=== PATIENT | female | born 1990 | race Caucasian/White ===

== ENCOUNTER 2016-12-02 19:29 | Emergency (ER) | payer BC ==
--- NOTE | 2016-12-02 19:49 | ERNOTE ---
Neuro HPI ER Record Date of Service: 12/02/16 Presenting Symptoms: other - Seizure Time Seen by Provider: 12/02/16 19:34 Source: patient, family, RN notes reviewed Exam Limitations: no limitations Immunizations: IMMUNIZATION HX Immunizations Up to Date Yes History of Influenza Vaccine Yes Hx Pneumococcal Vaccination No Allergies/Adverse Reactions: Allergies Allergy/AdvReac Type Severity Reaction Status Date / Time amoxicillin [Amoxicillin] Allergy Intermediate Hives Verified 12/02/16 19:38 iodine Allergy Intermediate Hives Verified 12/02/16 19:38 Home Medications: HOME MEDICATIONS levETIRAcetam [Keppra] 500 mg PO BID 05/25/12 [Last Taken 10/05/14 13:00] Buspirone HCl [Buspar] 10 mg PO BID 10/06/14 [Last Taken 10/05/14 08:00] Calcium Carbonate [Calcium] 500 mg PO DAILY 10/06/14 [Last Taken 10/05/14 08:00] Cholecalciferol (Vitamin D3) [Vitamin D3] 2,000 unit PO DAILY 10/06/14 [Last Taken 10/05/14 08:00] Docusate Sodium [Colace] 100 mg PO BID #28 capsule 10/08/14 [Last Taken Unknown] Ibuprofen [Motrin] 200 - 800 mg PO Q6H PRN #100 tab 10/08/14 [Last Taken Unknown ] Sulfamethoxazole/Trimethoprim [Bactrim Ds] 1 tab PO BID #10 tab 12/02/16 [Last Taken Unknown] - History of Present Illness Narrative: 26 y/o female brought to the ED by her after having a seizure. She was in the kitchen when he heard her fall down. He reports that she had about 2 minutes of generalized seizure activity followed by several minutes of confusion. She had returned to her baseline by the time they left to come here. She takes Keppra and has not had a seizure for approximately 2 years. She has not missed any doses of medication. She did consume alcohol last evening. Onset: better - Character of Deficits Baseline Cognition: Present: alert, oriented x 4 Prior Treament: Reports: similar symptoms before. Denies: recently seen Review of Systems - Review of Systems Constitutional: Absent: recent illness, fever, chills, malaise EYE: Absent: eye pain, vision changes ENT: Present: no symptoms reported Respiratory: Absent: shortness of breath, cough Cardiology: Absent: chest pain, palpitations Gastrointestinal/Abdominal: Absent: nausea, vomiting, diarrhea, abdominal pain Genitourinary: Absent: dysuria, hematuria Musculoskeletal: Absent: muscle pain, joint pain Skin: Absent: rash, lesions, lumps Neurological: Absent: headache, dizziness/light-headedness Endocrine: Present: no symptoms reported Hematologic/Lymphatic: Present: no symptoms reported Psych: Absent: anxiety, depressed - Patient's Past Medical History Patient History - Medical: Seizures Patient History - Cardiac/Respiratory: No pertinent hx Patient History - Cancer: No Hx of Cancer Patient History - Surgical Procedures: Patient History - Other: None LMP (Calendar): 11/06/16 - Family History Mother Family History - Cardiac/Respiratory: Hypertension, Other Father Family History - Cardiac/Respiratory: Hypertension, Other Brother Family History - Cardiac/Respiratory: Hypertension Grandmother-Paternal Family History - Cardiac/Respiratory: Hypertension Grandfather-Paternal Family History - Cardiac/Respiratory: Hypertension - Social History Living Situations: home Abuse History: No History of abuse Psych History: Hx of Anxiety Smoking Status: Never smoker Have you smoked in the past 12 months: No Do you dip or chew tobacco: No Alcohol Use: occasionally Drug Use: none - Immunizations Immunizations Up to Date: Yes Hx Pneumococcal Vaccination: No History of Influenza Vaccine: Yes Physical Exam - Physical Exam General Appearance: Present: wd/wn, alert, no apparent distress Head Exam: Present: normal inspection, no evidence of injury Eye Exam: Normal inspection: bilateral, PERRL: bilateral, EOMI: bilateral Ears, Nose, Throat: Present: normal ENT inspection, normal pharynx Neck: Present: normal inspection, nontender, supple, full range of motion Respiratory: Present: no respiratory distress, normal breath sounds, no accessory muscle use, lungs clear Cardiovascular/Chest: Present: regular rate, rhythm, no murmur Gastrointestinal/Abdominal: Present: nontender, nondistended, soft Back Exam: Present: normal inspection, no vertebral tenderness Extremity Exam: Present: normal inspection, normal range of motion Neurological Exam: Present: alert, oriented, normal mood/affect, no motor/ sensory deficits Skin Exam: Present: normal color, warm/dry Mayra Coma Scale - Assess Eye Opening: Spontaneous Motor: Obeys Commands Verbal: Oriented - Total Coma Scale Total: 15 ED Progress - Results and Orders Patient's Lab Results:: I have reviewed the patient's lab results. - Vital Signs Patient's Vital Signs:: I have reviewed the patient's vital signs. Vital Signs: Vital Signs 12/02/16 19:33 Temperature 37.3 C Pulse Rate 123 H Respiratory 19 Rate Blood Pressure 153/94 O2 Sat by Pulse 100 Oximetry - Progress/Reassessment Chief Complaint: Seizure Activity Progress:: Improved Departure Clinical Impression: Seizure disorder Urinary tract infection Qualifiers: Urinary tract infection type: acute cystitis Hematuria presence: without hematuria Qualified Code(s): N30.00 - Acute cystitis without hematuria - Departure Disposition: Home Follow Up Needed Condition: Stable Instructions: Form - Excuse from Work, School, or Physical Activity, Seizure, Adult, [id number] Additional Instructions: Drink plenty of water Continue your routine medications Contact Dr. Carranza's office to arrange follow up Referrals: Ran Carranza MD [Staff Physician] - Prescriptions: Sulfamethoxazole/Trimethoprim [Bactrim Ds] 1 tab PO BID #10 tab
[2016-12-02 20:00] LABS: Hematocrit 37.3 % (37.0-47.0); Hemoglobin 12.7 gm/dL (12.5-16.0); Mean Cell Volume 90.5 fl (78-100); Mean Corpuscular Hemoglobin 30.8 pg (27-31); Mean Platelet Volume 10.3 fl (6.0-9.5); Neutrophil % 65.1 % (42-75.0); Platelet Count 288 K/mm3 (150-450); Red Blood Count 4.12 M/mm3 (4.2-5.4); Red Cell Distribution Width 13.2 % (11.5-14.0); White Blood Count 15.3 K/mm3 (4.0-10.5)
[2016-12-02 20:15] LABS: Albumin * 3.6 gm/dl (3.4-5.0); Anion Gap 16.3 mmol/L (6.8-13.8); BUN/Creatinine Ratio 14.1 (9.0-21.6); Bilirubin, Total 0.3 mg/dL (0.0-1.1); Ca. Corrected For Albumin 8.7 mg/dL (8.4-10.2); Calcium * 8.7 mg/dL (7.9-10.9); Carbon Dioxide 22.9 mmol/L (24-32.6); Potassium 3.2 mmol/L (3.4-4.6); Total Protein 7.3 gm/dL (6.2-8.2)
[2016-12-02 20:46] LABS: Cocaine Ur Negative (NEGATIVE); Urine Barbiturate Negative (NEGATIVE); Urine Benzodiazepines Negative (NEGATIVE); Urine PCP Negative (NEGATIVE); Urine THC Negative (NEGATIVE)
[2016-12-02 20:53] LABS: Urine Appearance Clear; Urine Bilirubin Negative (NEGATIVE); Urine Blood 50 /ul (NEGATIVE); Urine Color Yellow; Urine Ketone Negative (NEGATIVE); Urine Nitrite Negative (NEGATIVE); Urine Protein 15 mg/dL (NEGATIVE); Urine RBC 0-5 /hpf (0-5); Urine Specific Gravity >=1.030 SP.GR. (1.005-1.010); Urine Urobilinogen Normal (NORMAL)
[2016-12-02 20:54] LABS: Urine Bacteria 1+
[2016-12-02 20:56] LABS: Urine Opiates Negative (NEGATIVE)
[2016-12-02] MEDS ORDERED: SULFAMETHOXAZOLE/TRIMETHOPRIM 1 TAB TABLET PO ONE (21:17)
[2016-12-02] MEDS ORDERED: SULFAMETHOXAZOLE/TRIMETHOPRIM 1 TAB TABLET ONE (21:25)
[2016-12-02 22:48] VITALS: BP 134/83
== END 2016-12-02 21:31 | disposition home or self-care (01) ==
LOC: ER 19:29
DX: G40.909 Epilepsy, unspecified, not intractable, without status epilepticus (principal); N30.00 Acute cystitis without hematuria